=== PATIENT | male | born 1945 | race Caucasian/White ===

== ENCOUNTER 2017-09-16 06:56 | Emergency (ER) | payer MEDICARE, OTHER ==
[~2017-09-16] VITALS: Ht 165.1 cm; Wt 70.5 kg
[~2017-09-16 06:56] MED LIST: FLOMAX 0.40.4 MG/CAP PO; FLUOCINONIDE 0.60 GM TP; KETOROLAC10 MG PO; MULTIPLE VITAMI1 CAP PO; NORCO 325 MG-51 TAB PO; PERCOCET 500 MG1 TAB PO; PREDNISONE20 MG PO; ZOCOR 20MG20 MG PO; ZOCOR20 MG PO; ZOFRAN 4MG T4 MG/TAB PO; ZOFRAN4 M1 PO
[2017-09-16 07:00] VITALS: TEMP 98.5
[2017-09-16 08:45] LABS: BASO # 0.1 (0.0-0.2); BASO % 0.9 % (0.0-2.0); EOS # 0.1 (0.0-0.7); EOS % 0.7 % (0-4.0); GRAN # 6.6 (1.4-6.5); GRAN % 72.6 % (42.2-75.2); LYMPH # 1.5 (1.2-3.4); LYMPH % 16.6 % (20.0-51.0); MEAN CELL VOLUME 93 fl (80.0-100.0); MEAN CORPUSCULAR HGB CONC 34 g/dl (33.0-37.0); MEAN PLATELET VOLUME 10.9 fl (7.4-10.4); MONO # 0.8 (0.1-0.6); MONO % 8.9 % (1.7-9.3); PLATELET COUNT 160 K/mm3 (130-400); RED BLOOD COUNT 5.74 M/mm3 (4.20-5.60); REDCELL DISTRIBUTION WIDTH-CV 11.4 % (11.5-14.5)
[2017-09-16 08:46] LABS: HEMATOCRIT 53.2 % (42.0-52.0); HEMOGLOBIN 18.3 g/dl (13.5-18.0); MEAN CORPUSCULAR HEMOGLOBIN 32 pg (27.0-31.0)
[2017-09-16 08:58] LABS: ALBUMIN 4.7 gm/dL (3.5-5.0); BILIRUBIN,TOTAL 1.2 mg/dL (0.0-1.0); CALCIUM 9.8 mg/dL (8.4-10.2); CREATININE, serum 1.32 mg/dL (0.66-1.25); POTASSIUM 4.8 mmol/L (3.4-5.0); TOTAL PROTEIN 8.1 gm/dL (6.4-8.2)
[2017-09-16 09:06] LABS: ERYTHROCYTE SEDIMENTATION RATE 1 mm/hr (0-30)
[2017-09-16 09:15] VITALS: BP 134/83; PULSE 84
== END 2017-09-16 09:15 | disposition home or self-care (01) ==
LOC: COL.ER 06:56
PROVIDERS: Family Medicine
DX: G44.209 Tension-type headache, unspecified, not intractable (principal); B34.9 Viral infection, unspecified; E78.5 Hyperlipidemia, unspecified
CPT/HCPCS: J1885

== ENCOUNTER → 2021-11-24 | Outpatient (CLI) | payer MEDICARE, OTHER | LOC: COL.RAD 13:55 | DX: N20.0 Calculus of kidney (principal); N21.0 Calculus in bladder; N40.1 Benign prostatic hyperplasia with lower urinary tract symptoms | CPT/HCPCS: Q9967 ==

== ENCOUNTER 2022-03-07 06:07 | Emergency (ER) | payer MEDICARE, OTHER ==
[~2022-03-07] VITALS: Ht 165.1 cm; Wt 70.5 kg
[~2022-03-07 06:07] MED LIST changes: +ALEVE 220MG220 MG PO; +CRESTOR5 MG PO
[2022-03-07 06:13] VITALS: BP 133/73; PULSE 72; TEMP 98
== END 2022-03-07 06:46 | disposition home or self-care (01) ==
LOC: COL.ER 06:07
DX: L27.0 Generalized skin eruption due to drugs and medicaments taken internally (principal)

== ENCOUNTER → 2023-08-25 | Outpatient (CLI) | payer MEDICARE, OTHER | LOC: COL.RAD 13:04 | DX: N20.1 Calculus of ureter (principal); N18.31 Chronic kidney disease, stage 3a; M54.50 Low back pain, unspecified ==

== ENCOUNTER 2023-09-07 14:04 | Day surgery (SDC) | payer MEDICARE, OTHER ==
[2023-09-07] VITALS (8 sets, daily range): BP systolic 137–160; BP diastolic 64–82; PULSE 61–82; TEMP 97–97.6
[~2023-09-07] VITALS: Ht 165.1 cm; Wt 71.1 kg
[2023-09-07] MEDS ORDERED: PERCOCET 325 MG1 TA2 PO (18:45)
--- NOTE | 2023-09-07 19:20 | NUR ---
PT RETURNS FROM SURGERY. UP TO BATHROOM, PASSES MINIMAL BLOOD ONLY. BACK TO BED. WATER AND ICE CREAM PROVIDED.
--- NOTE | 2023-09-07 20:41 | NUR ---
PT ANXIOUS TO GO HOME, HAS NOT VOIDED YET. INT TO LT HAND. SPOUSE AT BEDSIDE. PT IS DRESSED. PAIN CONTROLLED.
--- NOTE | 2023-09-07 21:30 | NUR ---
PT STILL DRINKING FLUIDS AND HAS NOT VOIDED. WALKING IN ROOM AND HALLWAY. DENIES PAIN.
--- NOTE | 2023-09-07 22:10 | NUR ---
NOTIFIED DR KNIGHT OF PT UNABLE TO VOID, BLADDER SCAN [id number] CC. ORDER TO STRAIGHT CATH X1, PT AGREEABLE.
--- NOTE | 2023-09-07 22:20 | NUR ---
STRAIGHT CATHED PT FOR 300CC OF BLOOD TINGED URINE WITH SMALL CLOT RETURN. PT TOLERATED WITHOUT PROBLEM. DR KNIGHT NOTIFIED, OKAYS FOR PT TO DISCHARGE HOME.
--- NOTE | 2023-09-07 22:45 | NUR ---
DC'D INT FROM LT HAND, ANGIOCATH INTACT. REVIEWED DISCHARGE INSTRUCTIONS WITH PT AND , VERBALIZED UNDERSTANDING. ENCOURAGED RETURN TO ER IF UNABLE TO VOID, VERBALIZED UNDERSTANDING. ESCORTED TO PRIVATE CAR VIA AMBULATORY STATUS. COPY OF DISCHARGE INSTRUCTIONS SENT WITH PT. PERSONAL BELONGINGS WITH PT.
== END 2023-09-07 22:50 | disposition home or self-care (01) ==
LOC: SDCO 14:04 → SURG 19:47 → SDCO 22:50
DX: N20.1 Calculus of ureter (principal); Z87.891 Personal history of nicotine dependence
CPT/HCPCS: OP; C1769; C2617; J0690; J1100; J2405; J2704; J3010; J7120; Q9967

== ENCOUNTER → 2024-05-09 | Outpatient (CLI) | payer MEDICARE, OTHER ==
[~2024-05-09] MED LIST changes: +PERCOCET 325 MG1 TA2 PO
== END ==
LOC: COL.RAD 15:31
DX: G31.9 Degenerative disease of nervous system, unspecified (principal); I67.82 Cerebral ischemia; I62.9 Nontraumatic intracranial hemorrhage, unspecified